=== PATIENT | female | born 1975 | race African-American/Black ===

== ENCOUNTER → 2021-05-11 | Outpatient (CLI) | payer OTHER ==
[~2021-05-11] MED LIST: APAP500 PO; DERMOPLAST SPRA56 ML TOP; FLAGYL500 MG PO; HYDROCORTISONE30 G9 TOP; IBUPROFEN 600600 M1 PO; LANOLIN56 GM TOP; LISINOPRIL-HCT1 EAC1 PO; MOBIC15 MG PO; PRENATAL; REGLAN 10 MG TA10 MG PO; TUCKS MEDICATE1 EAC1 TOP
== END ==
LOC: BC 13:48
PROVIDERS: ATTEND Family Medicine
DX: Z12.31 Encounter for screening mammogram for malignant neoplasm of breast (principal); N63.20 Unspecified lump in the left breast, unspecified quadrant